=== PATIENT | male | born 1955 | race Two or more races ===

== ENCOUNTER 2021-04-27 19:21 | Emergency (ER) | payer SELFPAY ==
[~2021-04-27] VITALS: Ht 177.8 cm; Wt 114.3 kg
[2021-04-27 19:21] VITALS: BP 153/78
== END 2021-04-27 21:02 | disposition left against medical advice (07) ==
LOC: ER 19:22
DX: R10.9 Unspecified abdominal pain (principal); Z53.21 Procedure and treatment not carried out due to patient leaving prior to being seen by health care provider